=== PATIENT | female | born 1990 | race Caucasian/White ===

== ENCOUNTER 2016-12-24 19:44 | Emergency (ER) | payer OTHER ==
[~2016-12-24] VITALS: Wt 64.9 kg
[~2016-12-24 19:44] MED LIST: ACET500T98; BACITUD TOP; IBUP-1542 PO
[2016-12-24] MEDS ORDERED: LIDOCAINE/MYLANTA 40 ML BTL PO ONE (21:00)
--- NOTE | 2016-12-24 21:00 | ERD ---
ER Documentation Chief Complaint Date/Time DATE: 12/24/16 TIME: 20:58 Chief Complaint ABD PAIN FOR FEW DAYS. NO DYSURIA OR DIARRHEA. NAUSEA NO VOMITING. HPI This pleasant 26-year-old female presents to the emergency department today with abdominal pain starting in her left upper quadrant and radiating to right upper quadrant, patient was at work today reports pain is sharp and felt like " I cannot breathe". Patient denies nausea now but reports intermittent nausea throughout the day. Denies history of GERD or heartburn, states she has been seen in the emergency department for same complaint, chart review patient was seen April 19, 2014 at that time patient had microscopic hematuria and had a renal ultrasound performed which was unremarkable. She was discharged with probable mild gastritis and started on Pepcid. Patient has not been taking Pepcid for many years. ROS All systems reviewed and are negative except as per history of present illness. Medications Home Meds Active Scripts Ranitidine Hcl* (Zantac*) 150 Mg Tablet, 150 MG PO BID Y for EPIGASTRIC PAIN, # 30 TAB Prov:MALLORY CAMPBELL 12/24/16 Ibuprofen* (Motrin*) 600 Mg Tab, 600 MG PO Q8, #30 Prov:MG CHATTERJEE 05/16/15 Bacitracin* (Bacitracin Oint (UD)*) 1 Applic Oint, 1 APPLIC TOP TID for 7 Days, PKT APPLY TO Prov:MG CHATTERJEE 05/16/15 Reported Medications Acetaminophen (Tylenol) 500 Mg Tab 01/14/10 Allergies Allergies: Coded Allergies: Penicillins (Verified Allergy, Mild, 04/19/14) PMhx/Soc History of Surgery: Yes (eye sx) Anesthesia Reaction: No Hx Neurological Disorder: No Hx Respiratory Disorders: No Hx Cardiac Disorders: No Hx Psychiatric Problems: No Hx Miscellaneous Medical Probl: No Hx Alcohol Use: No Hx Substance Use: No Hx Tobacco Use: No Smoking Status: Never smoker Physical Exam Vitals Vital Signs Date Time Temp Pulse Resp B/P Pulse Ox O2 Delivery O2 Flow Rate FiO2 12/24/16 23:41 75 16 141/78 100 Room Air 12/24/16 19:53 99.2 87 20 144/82 98 Physical Exam Const: Well-appearing, no acute Head: Atraumatic Eyes: Normal Conjunctiva, PERRLA, EOMI ENT: Normal External Ears, Nose and Mouth, mucous membranes Neck: Resp: Chest rises and falls symmetrically, clear to auscultation bilaterally no respiratory distress Cardio: Abd: Abdomen symmetrical, soft, tympanic to percussion, generalized abdominal tenderness across all quadrants. No CVA tenderness Skin: Back: No midline or flank tenderness Ext: Neur: Awake and alert Psych: Normal Mood and Affect Results 24 hrs Current Medications Medications (Trade) Dose Ordered Sig/Brett Route PRN Reason Start Time Stop Time Status Last Admin Dose Admin Miscellaneous Medication 40 ml 40 ml ONCE ONCE PO 12/24/16 21:00 12/24/16 21:01 DC 12/24/16 21:27 Sodium Chloride (NS) 500 ml @ 500 mls/hr Q1H ONCE IV 12/24/16 22:30 12/24/16 23:29 DC 12/24/16 22:24 Pantoprazole (Protonix Iv) 40 mg ONCE ONCE IV 12/24/16 22:30 12/24/16 22:31 DC 12/24/16 22:23 Ketorolac Tromethamine (Toradol) 15 mg ONCE STAT IV 12/24/16 22:06 12/24/16 22:08 DC 12/24/16 22:23 Procedures/MDM This pleasant 26-year-old female presents to emergency department today with left upper abdominal pain radiating to right upper abdominal pain. She is tender to palpation across all quadrants on physical exam. Differential diagnosis includes but not limited to appendicitis, pancreatitis, cholecystitis are unlikely. Patient is well-appearing in no acute pain. Urinalysis, UA hCG performed. Patient given GI cocktail with mild decrease in sensation with rebound symptoms. Patient treated with IV normal saline, Protonix 40 mg intravenously, and Toradol 15 mg intravenously, patient reassessed after 90 minutes with improvement of symptoms. Patient likely has a mild gastritis, plan to start Zantac twice daily. I feel the patient is stable for discharge at this time with outpatient management and follow-up by primary care physician. I have discussed results, examination findings, the treatment plan with the patient and family present prior to discharge. Indications for emergent reevaluation, side effects of medication were also discussed. All questions were answered. Patient verbalizes understanding and agrees with plan of care. Departure Diagnosis: Primary Impression: Abdominal pain Abdominal location: generalized Qualified Code: R10.84 - Generalized abdominal pain Patient Instructions: Abdominal Pain Additional Instructions: Thank you for for coming to [facility] for your care today. Please ask your nurse or provider if you have questions about your care today and do not leave until all your questions have been answered. Please use any medications given as directed and follow-up with your doctor (or the doctor you were referred to) in the next 2-3 days. If you do not have a primary care doctor you may follow up at the [facility] (listed below). You may also use motrin and tylenol as needed for fever and/or pain unless instructed otherwise by your provider or nurse. Indications for more urgent follow-up have been discussed, but you may return to the Emergency Department at ANY time for any worrisome or worsening symptoms. If you have abdominal pain, please know that no test or exam you received is perfect and you should follow up within 8 hours for continued pain. If you had any imaging studies today, such as an X-Ray or CT Scan, these studies will be reviewed later by a radiologist. You will be called if there are important findings that were not identified today, so make sure the contact information you provided at registration is correct. If you received any narcotic pain control medicine today, such as Vicodin, Morphine or Dilaudid, your coordination and judgment may be affected for a number of hours. Please do not drive or operate heavy machinery, and you may want someone to assist you at home. If you were given a prescription for narcotic medication, be aware that it is very addictive- use sparingly and only if necessary. MALLORY CAMPBELL December 24, 2016 21:00
[2016-12-24] MEDS ORDERED: KETOROLAC 15 MG INJ IV STA (22:06)
[2016-12-24] MEDS ORDERED: PANTOPRAZOLE 40 MG INJ IV ONE (22:30)
[2016-12-24] MEDS ORDERED: SOD CHLORIDE 0.9% 500 ML IV ONE (22:30)
[2016-12-24] MEDS ORDERED: RANI150T9 PO (23:29)
[2016-12-24 23:41] VITALS: BP 141/78; PULSE 75; RESP 16
== END 2016-12-24 23:52 | disposition home or self-care (01) ==
LOC: FTE 19:44
DX: R10.84 Generalized abdominal pain (principal)
CPT/HCPCS: C9113; J1885; J7040; Z7610; 96374; 96375

== ENCOUNTER 2018-03-07 14:18 | Emergency (ER) | END 2018-03-07 18:31 | disposition home or self-care (01) ==